=== PATIENT | male | born 2000 ===

== ENCOUNTER 2020-05-12 11:19 | Emergency (ER) | payer SELFPAY ==
[~2020-05-12] VITALS: Ht 162.6 cm; Wt 59.0 kg
[2020-05-12] MEDS ORDERED: Robaxin-750750 MG PO (13:27)
[2020-05-12] MEDS ORDERED: IBUP600 PO (13:27)
[2020-05-12] MEDS ORDERED: TRAM50 PO (13:27)
== END 2020-05-12 14:25 | disposition home or self-care (01) ==
LOC: ER 11:19
DX: S39.012A Strain of muscle, fascia and tendon of lower back, initial encounter (principal); R25.2 Cramp and spasm; X58.XXXA Exposure to other specified factors, initial encounter; Y93.01 Activity, walking, marching and hiking
CPT/HCPCS: 72100; 96374; 96375; 99284-25; J1885; J3010